=== PATIENT | female | born 2000 | race African-American/Black ===

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

== ENCOUNTER 2018-04-04 05:30 | Inpatient (IN) | payer OTHER ==
[2018-04-04] MEDS ORDERED: Diphenoxylate HCl/Atropine Tablet PO PRN (07:14)
[2018-04-04] MEDS ORDERED: Ibuprofen 800 MG TAB PO PRN (07:14)
[2018-04-04] MEDS ORDERED: Methylergonovine 0.2 MG/ML VIAL IM PRN (07:14)
[2018-04-04] MEDS ORDERED: HYDROcodone/Acetaminophen 5/325 mg Tablet PO PRN ×3 (07:14→17:58)
[2018-04-04] MEDS ORDERED: Misoprostol 200 MCG TAB PR PRN (07:14)
[2018-04-04] MEDS ORDERED: Lidocaine 1% (PF) 30 ML VIAL SC PRN (07:14)
[2018-04-04] MEDS ORDERED: NS / Oxytocin 40 units/1000ml 1,000 ML IV PRN (07:14)
[2018-04-04] MEDS ORDERED: Carboprost 250 MCG/ML AMP IM PRN (07:14)
[2018-04-04] MEDS ORDERED: Ondansetron PF 4 MG/2 ML Vial IVP PRN ×2 (07:14→17:58)
[2018-04-04] MEDS ORDERED: Butorphanol Tartrate 1 MG/ML VIAL SLOW IVP PRN (07:14)
[2018-04-04] MEDS ORDERED: NS w/ Oxytocin 10 units 500 ML IV SCH ×2 (07:14)
[2018-04-04] MEDS: Lactated Ringer's 1,000 ML IV SCH ×2 (07:33→23:05)
[2018-04-04 07:46] VITALS: BMI 29.9
[2018-04-04] MEDS ORDERED: Penicillin G Potassium 5 MILL.UNITS VIAL ONE (07:46)
[2018-04-04] MEDS ORDERED: NS w/ Oxytocin 10 units 500 ML ONE (07:47)
[2018-04-04 07:52] LABS: Mean Corpuscular Hemoglobin 28.2 pg (25.0-35.0); Mean Corpuscular Volume 85.3 fL (78.0-98.0); Mean Platelet Volume 11.7 fL (7.4-10.4); Platelet Count 150 thou/uL (130-400); RBC Distribution Width 12.8 % (11.5-14.5); Red Blood Cell (RBC) Count 3.19 mill/uL (4.00-5.20); White Blood Cell (WBC) Count 13.4 thou/uL (4.8-10.8)
[2018-04-04 08:28] LABS: Hep B Surf Ag Non-Reactive S/CO (NonReactive)
[2018-04-04 08:36] LABS: Syphilis Antibody Nonreactive (Nonreactive); Syphilis Antibody Index 0.05 S/CO (<1.00 Non-Reactive)
[2018-04-04] MEDS ORDERED: Bupivacaine 0.25% HCL 30 ML VIAL ONE (11:11)
[2018-04-04] MEDS ORDERED: Pen G 2.5 MILL.UNITS/50 ML BAG IVPB SCH (12:00)
[2018-04-04] MEDS ORDERED: Fentanyl 4 mcg/Bup 0.1% Cadd 100 ML ONE (13:00)
[2018-04-04] MEDS ORDERED: Lidocaine 1.5%/Epinephrine 1:200,000 5 ML AMPUL IJ ONE (13:38)
[2018-04-04] MEDS: NS / Oxytocin 40 units/1000ml 1,000 ML IV SCH ×2 (15:00→16:15)
[2018-04-04] MEDS ORDERED: Benzocaine/Menthol 20-0.5% 60 ML CAN TOP PRN (17:58)
[2018-04-04] MEDS ORDERED: Adacel (T-DAP) 0.5 ML SYRINGE IM ONE (17:58)
[2018-04-04] MEDS ORDERED: Bisacodyl 10 MG SUPP PR PRN (17:58)
[2018-04-04] MEDS ORDERED: Milk Of Magnesia 30 ML UDCUP PO PRN (17:58)
[2018-04-04] MEDS ORDERED: Ferrous Sulfate 325 MG TAB PO SCH (18:30)
[2018-04-04] MEDS: Ibuprofen 800 MG TAB PO SCH (21:23)
[2018-04-04] MEDS: Docusate Calcium (SURFAK) 240 MG CAP PO SCH (21:23)
[2018-04-05] MEDS: Ibuprofen 800 MG TAB PO SCH ×2 (05:44→14:31)
[2018-04-05] MEDS ORDERED: Ferrous Sulfate 325 MG TAB PO SCH (08:00)
[2018-04-05 08:31] LABS: Hemoglobin 8.3 g/dL (12.0-16.0); Mean Corpuscular HGB CONC 32.2 g/dL (32.0-36.0); Mean Corpuscular Hemoglobin 27.1 pg (25.0-35.0); Mean Corpuscular Volume 84.2 fL (78.0-98.0); Mean Platelet Volume 11.8 fL (7.4-10.4); Platelet Count 131 thou/uL (130-400); RBC Distribution Width 12.6 % (11.5-14.5); Red Blood Cell (RBC) Count 3.08 mill/uL (4.00-5.20); White Blood Cell (WBC) Count 13.4 thou/uL (4.8-10.8)
[2018-04-05] MEDS ORDERED: Prenatal Vitamin 1 TAB PO SCH (09:00)
[2018-04-05] MEDS: Docusate Calcium (SURFAK) 240 MG CAP PO SCH (09:24)
[2018-04-05 11:51] VITALS: BP 122/76; TEMP 99
== END 2018-04-05 18:00 | disposition home or self-care (01) | DRG 807 ==
LOC: L&D 06:38 → 3SW 17:52
PROVIDERS: ADMIT Family Medicine; ATTEND Family Medicine
PROC: 10E0XZZ Delivery of Products of Conception, External Approach (ICD-10-PCS; principal; 2018-04-04)
PROC: 10907ZC Drainage of Amniotic Fluid, Therapeutic from Products of Conception, Via Natural or Artificial Opening (ICD-10-PCS; 2018-04-04)
PROC: 3E033VJ Introduction of Other Hormone into Peripheral Vein, Percutaneous Approach (ICD-10-PCS; 2018-04-04)
DX: O99.824 Streptococcus B carrier state complicating childbirth (principal); Z37.0 Single live birth; Z3A.39 39 weeks gestation of pregnancy; O69.1XX0 Labor and delivery complicated by cord around neck, with compression, not applicable or unspecified
CPT/HCPCS: 36415; 85027; 86780; 86850; 86900; 86901; 87340; J0595; J2001; J2540; J3490; S0020

== ENCOUNTER 2019-12-09 07:14 | Inpatient (IN) | payer OTHER ==
[2019-12-09] MEDS ORDERED: Carboprost 250 MCG/ML AMP IM PRN (08:20)
[2019-12-09] MEDS ORDERED: Ondansetron PF 4 MG/2 ML Vial IVP PRN ×3 (08:20→20:15)
[2019-12-09] MEDS ORDERED: Promethazine HCl 25 MG/ML VIAL IM PRN ×2 (08:20→15:25)
[2019-12-09] MEDS ORDERED: Diphenoxylate HCl/Atropine Tablet PO PRN (08:20)
[2019-12-09] MEDS ORDERED: NS / Oxytocin 40 units/1000ml 1,000 ML IV PRN (08:20)
[2019-12-09] MEDS ORDERED: Lidocaine 1% (PF) 30 ML VIAL SC PRN (08:20)
[2019-12-09] MEDS ORDERED: Butorphanol Tartrate 1 MG/ML VIAL SLOW IVP PRN (08:20)
[2019-12-09] MEDS ORDERED: HYDROcodone/Acetaminophen 5/325 mg Tablet PO PRN ×3 (08:20→20:15)
[2019-12-09] MEDS ORDERED: Methylergonovine 0.2 MG/ML VIAL IM PRN (08:20)
[2019-12-09] MEDS ORDERED: Acetaminophen 500 MG TAB PO PRN (08:20)
[2019-12-09] MEDS ORDERED: Ibuprofen 800 MG TAB PO PRN (08:20)
[2019-12-09] MEDS ORDERED: Misoprostol 200 MCG TAB PR PRN (08:20)
[2019-12-09] MEDS ORDERED: Lactated Ringer's 1,000 ML IV SCH (08:30)
[2019-12-09] MEDS ORDERED: NS w/ Oxytocin 10 units 500 ML IV SCH ×2 (08:30)
[2019-12-09] MEDS ORDERED: Penicillin G Potassium 5 MILL.UNITS in Sodium Chloride 0.9% 100 ML IVPB SCH (08:30)
[2019-12-09 08:33] VITALS: BMI 29.7
[2019-12-09] MEDS ORDERED: Bupivacaine/Epinephrine 0.25% 30 ML VIAL ONE (08:35)
[2019-12-09] MEDS ORDERED: Lidocaine 2% MPF 10 ML AMP (For Epidural Use) ONE (08:35)
[2019-12-09] MEDS: Misoprostol 100 MCG TAB PO SCH ×2 (09:22→21:06)
[2019-12-09 09:46] LABS: Hemoglobin 10.1 g/dL (12.0-16.0); Mean Corpuscular HGB CONC 31.7 g/dL (32.0-36.0); Mean Corpuscular Hemoglobin 26.8 pg (27.0-31.0); Mean Corpuscular Volume 84.7 fL (78.0-98.0); Mean Platelet Volume 12.8 fL (7.4-10.4); Platelet Count 147 thou/uL (130-400); RBC Distribution Width 16.7 % (11.5-14.5); Red Blood Cell (RBC) Count 3.77 mill/uL (4.20-5.40); White Blood Cell (WBC) Count 13.2 thou/uL (4.8-10.8)
[2019-12-09 10:33] LABS: Syphilis Antibody Nonreactive (Nonreactive); Syphilis Antibody Index 0.05 S/CO (<1.00 Non-Reactive)
[2019-12-09 10:34] LABS: HBSAg Index 0.21 S/CO (0-0.99); Hep B Surf Ag Non-Reactive S/CO (NonReactive)
[2019-12-09] MEDS ORDERED: Fentanyl 4 mcg/Bup 0.1% Cadd 100 ML ONE (14:26)
[2019-12-09] MEDS: Penicillin G 2.5 MILL.units 2.5 MILL.UNITS in Premix Bag 1 BAG IVPB SCH ×2 (14:29→23:01)
[2019-12-09] MEDS ORDERED: EPHEDRINE 25 MG/5 ML SYRINGE SLOW IVP PRN (15:25)
[2019-12-09] MEDS ORDERED: Lactated Ringer's 500 ML IV PRN (15:25)
[2019-12-09] MEDS ORDERED: Naloxone HCl 0.4 mg/ml Vial IVP PRN ×2 (15:25)
[2019-12-09] MEDS ORDERED: diphenhydrAMINE 50 MG/ML VIAL IVP PRN (15:25)
[2019-12-09] MEDS ORDERED: Acetaminophen 325 MG TAB PO PRN (15:25)
[2019-12-09] MEDS ORDERED: Communication Order-Pharmacy FS SCH (15:30)
[2019-12-09] MEDS ORDERED: Fentanyl 4 mcg/Bupivacaine 0.1% Cassette 100 ML EPIDURAL SCH (15:30)
[2019-12-09] MEDS ORDERED: NS / Oxytocin 40 units/1000ml 1,000 ML ONE (17:56)
[2019-12-09] MEDS ORDERED: Lidocaine 1% (PF) 30 ML VIAL ONE (17:56)
[2019-12-09] MEDS ORDERED: Benzocaine-Menthol 82.5 ML CAN TOP PRN (20:15)
[2019-12-09] MEDS ORDERED: Milk Of Magnesia 30 ML UDCUP PO PRN (20:15)
[2019-12-09] MEDS ORDERED: Bisacodyl 10 MG SUPP PR PRN (20:15)
[2019-12-09] MEDS ORDERED: diphenhydrAMINE 25 MG CAP PO PRN (20:15)
[2019-12-09] MEDS ORDERED: NS / Oxytocin 40 units/1000ml 1,000 ML IV SCH (20:15)
[2019-12-09] MEDS: Ibuprofen 800 MG TAB PO SCH (21:08)
[2019-12-09] MEDS: Docusate Calcium (SURFAK) 240 MG CAP PO SCH (23:00)
[2019-12-10] MEDS: Ibuprofen 800 MG TAB PO SCH ×3 (05:55→22:15)
[2019-12-10] MEDS: Ferrous Sulfate 325 MG TAB PO SCH ×2 (08:06→16:50)
[2019-12-10] MEDS: Prenatal Vitamin 1 TAB PO SCH (08:28)
[2019-12-10] MEDS: Docusate Calcium (SURFAK) 240 MG CAP PO SCH ×2 (08:28→22:15)
[2019-12-10] MEDS ORDERED: Adacel (T-DAP) 0.5 ML SYRINGE IM ONE (09:00)
[2019-12-11] MEDS: Ibuprofen 800 MG TAB PO SCH ×2 (06:06→14:47)
[2019-12-11 08:14] VITALS: BP 125/77; TEMP 98.3
[2019-12-11] MEDS: Ferrous Sulfate 325 MG TAB PO SCH (08:34)
[2019-12-11] MEDS: Prenatal Vitamin 1 TAB PO SCH (08:35)
[2019-12-11] MEDS: Docusate Calcium (SURFAK) 240 MG CAP PO SCH (08:35)
== END 2019-12-11 15:15 | disposition home or self-care (01) | DRG 807 ==
LOC: L&D 07:14 → 3SE 20:34
PROVIDERS: ADMIT Family Medicine; ATTEND Family Medicine
PROC: 10E0XZZ Delivery of Products of Conception, External Approach (ICD-10-PCS; principal; 2019-12-09)
PROC: 3E0P7VZ Introduction of Hormone into Female Reproductive, Via Natural or Artificial Opening (ICD-10-PCS; 2019-12-09)
PROC: 10907ZC Drainage of Amniotic Fluid, Therapeutic from Products of Conception, Via Natural or Artificial Opening (ICD-10-PCS; 2019-12-09)
DX: O98.82 Other maternal infectious and parasitic diseases complicating childbirth (principal); Z37.0 Single live birth; B95.1 Streptococcus, group B, as the cause of diseases classified elsewhere; Z3A.39 39 weeks gestation of pregnancy
CPT/HCPCS: 36415; 51702; 85027; 86780; 86850; 86900; 86901; 87340; J2001; J2540; J2590; J3490

== ENCOUNTER 2023-08-17 14:36 | Emergency (ER) | payer OTHER ==
[2023-08-17] MEDS ORDERED: Acetaminophen 500 MG TAB ONE (14:58)
== END 2023-08-17 16:26 ==
LOC: ERS 14:36
DX: O99.891 Other specified diseases and conditions complicating pregnancy (principal); R51.9 Headache, unspecified; O10.913 Unspecified pre-existing hypertension complicating pregnancy, third trimester; V89.2XXA Person injured in unspecified motor-vehicle accident, traffic, initial encounter; Z3A.28 28 weeks gestation of pregnancy
CPT/HCPCS: 99284